=== PATIENT | female | born 1960 | race Caucasian/White ===

== ENCOUNTER 2017-07-05 22:25 | Emergency (ER) | payer BC, OTHER ==
[~2017-07-05] VITALS: Ht 152.4 cm; Wt 81.8 kg
[~2017-07-05 22:25] MED LIST: ZOFRAN ODT4 MG PO
[2017-07-06] MEDS ORDERED: VALIUM5 MG PO (00:57)
[2017-07-06] MEDS ORDERED: NORCO 5/3251 TABLET PO (00:57)
[2017-07-06 01:11] VITALS: BP 135/79
== END 2017-07-06 01:12 | disposition home or self-care (01) ==
LOC: EME 22:25
DX: M54.5 Low back pain (principal); M54.16 Radiculopathy, lumbar region; Z96.653 Presence of artificial knee joint, bilateral; Z88.8 Allergy status to other drugs, medicaments and biological substances
CPT/HCPCS: 72100; 99281; 99284; J1100; J3010